=== PATIENT | male | born 1990 | race African-American/Black ===

== ENCOUNTER 2021-03-29 22:27 | Emergency (ER) | payer MEDICAID, OTHER ==
[~2021-03-29] VITALS: Ht 182.9 cm; Wt 74.8 kg
[~2021-03-29 22:27] MED LIST: GABA800T87; INSUPOW; LISI-708
[2021-03-29] MEDS ORDERED: cloNIDine HCL 0.1 MG TAB PO ONE (22:45)
[2021-03-30 03:13] VITALS: BP 151/81
== END 2021-03-30 07:06 | disposition home or self-care (01) ==
LOC: ER 22:29
DX: J06.9 Acute upper respiratory infection, unspecified (principal); B97.89 Other viral agents as the cause of diseases classified elsewhere; I12.9 Hypertensive chronic kidney disease with stage 1 through stage 4 chronic kidney disease, or unspecified chronic kidney disease; E11.22 Type 2 diabetes mellitus with diabetic chronic kidney disease; N18.9 Chronic kidney disease, unspecified; Z20.822 Contact with and (suspected) exposure to COVID-19
CPT/HCPCS: 36415; 71045; 87426

== ENCOUNTER 2021-07-15 14:24 | Emergency (ER) | payer MEDICAID ==
[~2021-07-15] VITALS: Ht 175.3 cm; Wt 86.2 kg
[2021-07-16 02:28] VITALS: BP 148/88
== END 2021-07-16 07:24 | disposition home or self-care (01) ==
LOC: ER 14:24 → EDBD 14:24 → ER 07-16 07:24
DX: M79.605 Pain in left leg (principal); M79.604 Pain in right leg; I12.0 Hypertensive chronic kidney disease with stage 5 chronic kidney disease or end stage renal disease; E11.22 Type 2 diabetes mellitus with diabetic chronic kidney disease; N18.6 End stage renal disease; Z99.2 Dependence on renal dialysis; Z79.4 Long term (current) use of insulin; Z79.899 Other long term (current) drug therapy; Z88.8 Allergy status to other drugs, medicaments and biological substances